=== PATIENT | female | born 1950 | race Caucasian/White ===

== ENCOUNTER 2022-05-04 14:21 | Emergency (ER) | payer MEDICARE, OTHER ==
[2022-05-04] MEDS ORDERED: Diazepam 5 MG Tab PO ONE (14:28)
== END 2022-05-04 15:45 | disposition home or self-care (01) ==
LOC: FB.ED 14:21
DX: R42 Dizziness and giddiness (principal); Z88.2 Allergy status to sulfonamides
CPT/HCPCS: 99283; A9270